=== PATIENT | female | born 1960 | race Caucasian/White ===

== ENCOUNTER 2021-04-11 08:43 | Outpatient (CLI) | payer OTHER, SELFPAY ==
--- NOTE | 2021-04-11 08:51 | MM_ITS ---
WS: [id number] Exam: [place] [id number] Date/Time of Exam: 04/11/2021 8:53 AM Reason For Exam: SCREENING VIEWS: MLO and CC views both breasts. Comparison made with prior exam of 05/21/2013, 09/05/2016 and 02/19/2019. Findings: There was no sign of mass, architectural distortion or suspicious calcification in either breast. Ex tremely dense MM/[place] [id number] Impression: BI-RADS: 2-Benign FOLLOW-UP: 1 Year Follow-up This mammogram was also analyzed by the Computer Aided Detection System [employer].
== END 2021-04-11 08:44 | disposition home or self-care (01) ==
LOC: RADSHAW 08:50
PROVIDERS: PCP Family Medicine; Visit Provider Family Medicine
DX: Z12.31 Encounter for screening mammogram for malignant neoplasm of breast (principal)
CPT/HCPCS: 77067

== ENCOUNTER 2022-07-08 16:19 | Outpatient (CLI) | payer OTHER, SELFPAY ==
--- NOTE | 2022-07-08 16:46 | XR_ITS ---
WS: [id number] Exam: XR foot RT min 3V* [id number] Date/Time of Exam: 07/08/2022 4:47 PM Reason For Exam: HEEL PAIN IN RIGHT FOOT No fracture or dislocation noted. No soft tissue foreign bodies are seen. Anterior and posterior calc aneal spurs are noted. XR/XR foot RT min 3V* [id number] IMPRESSION: 1. No fracture identified. 2. Calcaneal spurs.
--- NOTE | 2022-07-08 16:52 | XR_ITS ---
WS: [id number] Exam: XR calcaneus RT min 2V [id number] Date/Time of Exam: 07/08/2022 4:52 PM Reason For Exam: RIGHT HEEL PAIN No fracture or dislocation. No soft tissue foreign bodies are seen. Prominent plantar heel spur noted . Tendon calcification at the attachment of the Achilles tendon. XR/XR calcaneus RT min 2V [id number] IMPRESSION: 1. No fracture or dislocation. 2. Plantar heel spur. Tendon calcification at the attachment the Achilles tendo n.
== END 2022-07-08 16:20 | disposition home or self-care (01) ==
PROVIDERS: PCP Family Medicine; Visit Provider Family Medicine
DX: M79.671 Pain in right foot (principal); G89.29 Other chronic pain; M77.31 Calcaneal spur, right foot
CPT/HCPCS: 73630; 73650

== ENCOUNTER 2024-05-06 11:44 | Outpatient (CLI) | payer MEDICARE, OTHER, SELFPAY ==
--- NOTE | 2024-05-06 11:45 | MM_ITS ---
WS: [id number] BILATERAL SCREENING DIGITAL TOMOSYNTHESIS MAMMOGRAM WITH CAD HISTORY: SCREENING COMPARISON: 04/11/2021, 02/19/2019 Bilateral CC and MLO views with tomosynthesis and synthetic mammography submitted. Computer aided det ection analyzed. Breast composition: The breasts are extremely dense, which lowers the sensitivity of mammography. No suspicious masses, microcalcifications or architectural distortion. Scattered asymmetries bilaterally . There is an area of increased attenuation best seen on the LEFT CC projection along the medial ante rior breast measuring 10 mm. This is below the nipple line and needs to be further evaluated. Not def initely seen on prior studies. MM/[place] [id number] IMPRESSION: BI-RADS: 0-Incomplete: Need additional imaging evaluation FOLLOW UP: Need Additional Imaging LEFT breast: Spot compression views (CC and MLO). True ML. Ultrasound to follow if abnormality persists.
== END 2024-05-06 11:45 | disposition home or self-care (01) ==
LOC: RAD 11:44
PROVIDERS: PCP Family Medicine; Visit Provider Family Medicine
DX: Z12.31 Encounter for screening mammogram for malignant neoplasm of breast (principal); R92.343 Mammographic extreme density, bilateral breasts; R92.8 Other abnormal and inconclusive findings on diagnostic imaging of breast
CPT/HCPCS: 77063; 77067

== ENCOUNTER 2024-06-01 14:00 | Outpatient (CLI) | payer MEDICARE, OTHER, SELFPAY ==
--- NOTE | 2024-06-01 14:02 | MM_ITS ---
WS: [id number] ADDITIONAL VIEWS LEFT MAMMOGRAM WITH DIGITAL BREAST TOMOSYNTHESIS. HISTORY: ABNORMAL MAMMOGRAM COMPARISON: 05/06/2024, 04/11/2021 and 02/19/2019 Spot compression views LEFT breast in CC, MLO projections and true ML submitted with digital breast t omosynthesis and SM. Breast composition: The breasts are extremely dense, which lowers the sensitivity of mammography. The asymmetry noted in the anterior medial LEFT breast resolves with additional spot compression view s. No distortion. No residual asymmetry. MM/MM diag LT tomosynthesis [id number] IMPRESSION: BI-RADS: 2 - Benign FOLLOW UP: 1 Year Follow-up
== END 2024-06-01 14:01 | disposition home or self-care (01) ==
PROVIDERS: PCP Family Medicine; Visit Provider Family Medicine
DX: Z12.31 Encounter for screening mammogram for malignant neoplasm of breast (principal); R92.8 Other abnormal and inconclusive findings on diagnostic imaging of breast
CPT/HCPCS: 77061; G0279

== ENCOUNTER → 2025-02-03 08:22 | Outpatient (BNVA) | payer MEDICARE, OTHER, SELFPAY | PROVIDERS: PCP Family Medicine; Visit Provider Nurse Practitioner Family | DX: L40.8 Other psoriasis (principal); L81.4 Other melanin hyperpigmentation; L57.8 Other skin changes due to chronic exposure to nonionizing radiation; L82.1 Other seborrheic keratosis; L40.0 Psoriasis vulgaris; D23.71 Other benign neoplasm of skin of right lower limb, including hip; Z08 Encounter for follow-up examination after completed treatment for malignant neoplasm; Z85.828 Personal history of other malignant neoplasm of skin; L82.0 Inflamed seborrheic keratosis; Z78.9 Other specified health status; R20.8 Other disturbances of skin sensation; L29.89 Other pruritus | CPT/HCPCS: 17110; 99214 ==

== ENCOUNTER → 2025-07-21 08:44 | Outpatient (BNVA) | payer MEDICARE, OTHER, SELFPAY | PROVIDERS: PCP Family Medicine; Visit Provider Nurse Practitioner Family | DX: L40.0 Psoriasis vulgaris (principal); L40.8 Other psoriasis; L57.8 Other skin changes due to chronic exposure to nonionizing radiation; L81.4 Other melanin hyperpigmentation; L82.1 Other seborrheic keratosis; D22.5 Melanocytic nevi of trunk; Z08 Encounter for follow-up examination after completed treatment for malignant neoplasm; Z85.828 Personal history of other malignant neoplasm of skin | CPT/HCPCS: 99214 ==